=== PATIENT | male | born 1950 | race Caucasian/White ===

== ENCOUNTER 2024-07-19 11:15 | Observation (INO) | payer BC, MEDICARE ==
[~2024-07-19] VITALS: Ht 182.9 cm; Wt 127.0 kg
[2024-07-19] MEDS: ASPIRIN 325 MG TAB PO ONE (12:04)
[2024-07-19 14:06] VITALS: PULSE 68; RESP 20; TEMP 98.4
[2024-07-19] MEDS: ASPIRIN 81 MG CHEW TAB PO ONE (15:58)
[2024-07-19 16:42] LABS: TROPONIN I 0.005 ng/mL (0-0.300)
[2024-07-19 17:32] VITALS: BP 122/73; PULSE 60; RESP 16; TEMP 98; O2SAT 98
[2024-07-19] MEDS ORDERED: ATORVASTATIN CA20 MG PO (17:44)
[2024-07-19] MEDS ORDERED: ASPIRIN81 MG PO (17:44)
[2024-07-19] MEDS ORDERED: NEXIUM20 MG PO (17:44)
[2024-07-19] MEDS ORDERED: ESIDRIX25 MG PO (17:44)
[2024-07-19] MEDS ORDERED: VALSARTAN320 MG PO (17:44)
[2024-07-19] MEDS ORDERED: AMIODARONE HCL200 MG PO (17:44)
[2024-07-19] MEDS ORDERED: B12 ACTIVE1000 MCG PO (17:44)
[2024-07-19] MEDS ORDERED: METOPROLOL SUCC50 MG PO (17:44)
[2024-07-19] MEDS ORDERED: FUROSEMIDE40 MG PO (17:44)
[2024-07-19 17:58] VITALS: BP 122/73; PULSE 60; RESP 16; TEMP 98; O2SAT 98
[2024-07-19] MEDS: FUROSEMIDE 40 MG TAB PO SCH (18:13)
[2024-07-19] MEDS ORDERED: BISACODYL 10 MG SUPP PR PRN (18:15)
[2024-07-19] MEDS ORDERED: ACETAMINOPHEN 325 MG TAB PO PRN (18:15)
[2024-07-19] MEDS ORDERED: POLYETHYLENE GLYCOL 3350 17 GM PACK PO PRN (18:15)
[2024-07-19] MEDS ORDERED: HYDRALAZINE HCL 20 MG/ML VIAL IV PRN (18:15)
[2024-07-19 20:00] VITALS: BP 128/64; PULSE 78; RESP 24; TEMP 97.7; O2SAT 97
[2024-07-19 21:22] LABS: TROPONIN I 0.011 ng/mL (0-0.300)
[2024-07-20 00:45] VITALS: BP 123/63; PULSE 59; RESP 18; TEMP 97.7; O2SAT 96
[2024-07-20] MEDS: ONDANSETRON HCL INJ 2MG/ML 2ML 2 MG/ML VIAL IV PRN (05:57)
[2024-07-20] MEDS: Morphine 4mg INJECTION 4 MG/ML INJ IV PRN (05:58)
[2024-07-20 06:35] LABS: BASOPHILS # (AUTO) 0.1 (0.0-0.1); BASOPHILS % 0.6 % (0.0-1.0); EOSINOPHILS # (AUTO) 0.1 (0.0-0.4); EOSINOPHILS % 1.6 % (0.0-6.0); HEMATOCRIT 42.8 % (38.2-49.6); HEMOGLOBIN 14.4 g/dL (14.0-18.0); LYMPHOCYTES # (AUTO) 2.4 (1.0-3.2); LYMPHOCYTES % 26.9 % (18.0-39.1); MEAN CORPUSCULAR HEMOGLOBIN 30.9 pg (28-32); MEAN CORPUSCULAR HGB CONC 33.6 g/dL (31-35); MEAN CORPUSCULAR VOLUME 91.8 fL (81-99); MONOCYTES # (AUTO) 0.8 (0.2-0.8); MONOCYTES % 9.2 % (4.4-11.3); NEUTROPHILS # (AUTO) 5.5 (2.1-6.9); NEUTROPHILS % 61.1 % (38.7-80.0); PLATELET COUNT 121 x10e3/uL (140-360); RED BLOOD COUNT 4.66 x10e6/uL (4.3-5.7); RED CELL DISTRIBUTION WIDTH 14.6 % (11.7-14.4); WHITE BLOOD COUNT 8.93 x10e3/uL (4.8-10.8)
[2024-07-20 07:08] LABS: CHOL/HDL RATIO 4.3 (3.9-4.7)
[2024-07-20 07:11] LABS: ALBUMIN 3.7 g/dL (3.5-5.0); ALBUMIN/GLOBULIN RATIO 1.3 (0.8-2.0); ANION GAP 14.8 mmol/L (8-16); BILIRUBIN,TOTAL 1.1 mg/dL (0.2-1.2); CALCIUM 8.8 mg/dL (8.4-10.2); CREATININE, SERUM 1.49 mg/dL (0.72-1.25); MAGNESIUM 1.9 MG/DL (1.3-2.1); POTASSIUM 3.8 mmol/L (3.5-5.1); TOTAL PROTEIN 6.6 g/dL (6.5-8.1)
[2024-07-20 07:17] LABS: TROPONIN I 0.013 ng/mL (0-0.300)
[2024-07-20 08:00] VITALS: BP 127/88; PULSE 74; RESP 18; TEMP 97.7; O2SAT 100
[2024-07-20 08:38] VITALS: BP 127/88; PULSE 74; RESP 20; TEMP 97.7; O2SAT 100
[2024-07-20] MEDS ORDERED: ASPIRIN 81 MG ENTERIC COATED PO SCH (09:00)
[2024-07-20] MEDS: VALSARTAN 160 MG TAB PO SCH (09:14)
[2024-07-20] MEDS: METOPROLOL SUCCINATE 50 MG TAB XL PO SCH (09:15)
[2024-07-20] MEDS: PANTOPRAZOLE SODIUM 20 MG TABLET.DR PO SCH (09:15)
[2024-07-20] MEDS: AMIODARONE HCL 200 MG TAB PO SCH (09:15)
[2024-07-20] MEDS: HYDROCHLOROTHIAZIDE 25 MG TAB PO SCH (09:15)
[2024-07-20] MEDS: ASPIRIN 81 MG CHEW TAB PO SCH (09:15)
[2024-07-20] MEDS: ATORVASTATIN 20 MG TAB PO SCH (09:16)
[2024-07-20 10:10] LABS: THYROID STIMULATING HORMONE 2.36 uIU/mL (0.350-4.940)
[2024-07-20] MEDS: KETOROLAC TROMETHAMINE 30 MG/ML VIAL IV STA (10:30)
[2024-07-20] MEDS ORDERED: KETOROLAC TROMETHAMINE 30 MG/ML VIAL IV PRN (10:30)
[2024-07-20] MEDS: HYDROCODONE/APAP 5MG-325MG TAB PO PRN (11:56)
[2024-07-20 12:55] VITALS: BP 110/75; PULSE 62; RESP 20; TEMP 98.2; O2SAT 97
[2024-07-20] MEDS: PREDNISONE 20 MG TAB PO SCH (13:14)
[2024-07-20] MEDS ORDERED: PREDNISONE20 MG PO (14:34)
[2024-07-20 16:47] VITALS: BP 109/52; PULSE 57; RESP 20; TEMP 97.5; O2SAT 96
== END 2024-07-20 19:05 | disposition home or self-care (01) ==
LOC: FSED 11:19 → ERHOLD 13:39 → MED/SURG 14:32
PROVIDERS: ADMIT Internal Medicine; ATTEND Internal Medicine
DX: R07.9 Chest pain, unspecified (principal); N17.9 Acute kidney failure, unspecified; I11.0 Hypertensive heart disease with heart failure; I50.22 Chronic systolic (congestive) heart failure; M25.512 Pain in left shoulder; E78.5 Hyperlipidemia, unspecified; I48.0 Paroxysmal atrial fibrillation; Z79.01 Long term (current) use of anticoagulants; Z95.810 Presence of automatic (implantable) cardiac defibrillator; I25.10 Atherosclerotic heart disease of native coronary artery without angina pectoris; R73.03 Prediabetes
CPT/HCPCS: 36415 ×2; 71045; 72050; 73030; 80053 ×2; 80061; 81003; 82550 ×2; 83036; 83735; 84443; 84484 ×2; 85025 ×2; 85379; 93005; 99284; G0378 ×2; J1885; J2270; J2405; J7512; 80076